=== PATIENT | female | born 1960 ===

== ENCOUNTER 2017-06-23 18:17 | Inpatient (IN) | payer MEDICAID ==
--- NOTE | 2017-06-23 18:39 | ED PDOC ---
HPI: Chest Pain Time Seen by Provider: 06/23/17 18:36 Chief Complaint (Nursing): Chest Pain Chief Complaint (Provider): CHEST PAIN History Per: Patient (56 Y/O FEMALE HERE FOR EVALUATION OF CHEST PAIN LEFT SIDED RADIATING TO LEFT ARM TODAY WHILE DOING MINOR HOUSEWORK. STATES SYMPTOMS LASTED 30 MINUTES. HAS H/O HTN/HLD AND 2 BALLOON STENT 5 YEARS AGO IN [place]. CURRENTLY FEELS THAT CHEST PAIN HAS DISSIPATED.) Past Medical History Reviewed: Historical Data, Nursing Documentation, Vital Signs Vital Signs: Last Vital Signs Temp 98.0 F 06/23/17 18:17 Pulse 88 06/23/17 19:31 Resp 20 06/23/17 19:31 BP 131/78 06/23/17 19:31 Pulse Ox 99 06/23/17 19:31 - Medical History PMH: CAD, Hypercholesterolemia Other PMH: PMD: DR RICHA PICKARD - Family History Family History: States: No Known Family Hx - Allergies Allergies/Adverse Reactions: Allergies Allergy/AdvReac Type Severity Reaction Status Date / Time Penicillins Allergy RASH Verified 06/23/17 18:24 Review of Systems ROS Statement: Except As Marked, All Systems Reviewed And Found Negative Cardiovascular: Positive for: Chest Pain Physical Exam - Reviewed Nursing Documentation Reviewed: Yes Vital Signs Reviewed: Yes - Physical Exam Appears: Positive for: Well, Non-toxic, No Acute Distress Head Exam: Positive for: ATRAUMATIC, NORMAL INSPECTION, NORMOCEPHALIC Skin: Positive for: Normal Color, Warm, DRY Eye Exam: Positive for: EOMI, Normal appearance, PERRL ENT: Positive for: Normal ENT Inspection Neck: Positive for: Normal, Painless ROM Cardiovascular/Chest: Positive for: Regular Rate, Rhythm Respiratory: Positive for: CNT, Normal Breath Sounds Gastrointestinal/Abdominal: Positive for: Normal Exam, Bowel Sounds, Soft Back: Positive for: Normal Inspection Extremity: Positive for: Normal ROM Neurologic/Psych: Positive for: Alert, Oriented - Laboratory Results Result Diagrams: 06/23/17 19:10 06/23/17 19:10 - ECG ECG Rhythm: Positive for: Sinus Rhythm (NSR 94BPM; NO ECTOPY NO ACUTE CHANGES) O2 Sat by Pulse Oximetry: 96 - Progress ED Course And Treament: initial ekg 18:10 nsr 94bpm; no ectopy ; no acute changes ASA 324 MG X 1 DOSE LOPRESSOR 25 MG X 1 DOSE Called to bedside for repeat chest pain 19:20. NItro slg x 1 given with relief of symptoms nitro 1 inch applied to chest wall Repeat EKG sandi at 19:35: nsr 82 bpm; no ectopy no acute changes CXR: cardiomegaly d/w Dr. Enamorado. Plavix 300mg x 1 dose and lovenox started in ED. Will order RUQ US to evaluate for biliary colic as well. Admitted to Dr. Ashok jin admission Disposition - Clinical Impression Clinical Impression: Chest pain - Patient ED Disposition Is Patient to be Admitted: Yes - Disposition Disposition: Transfer of Care Disposition Time: 20:32 Condition: FAIR Patient Signed Over To: Areli Ibarra Handoff Comments: pending ruq us - Pt Status Changed To: Hospital Disposition Of: Inpatient - Admit Certification Admit to Inpatient:: After my assessment, the patient will require hospitalization for at least two midnights. This is because of the severity of symptoms shown, intensity of services needed, and/or the medical risk in this patient being treated as an outpatient.
[2017-06-23 19:16] LABS: BASO # 0.1 K/uL (0.0-0.2); BASO % 0.3 % (0.0-2.0); LYMPH # 1.1 K/uL (1.0-4.3); LYMPH % 5.2 % (20.0-40.0); MEAN CELL VOLUME 80.8 fl (81.0-99.0); MEAN CORPUSCULAR HEMOGLOBIN 26.4 pg (27.0-31.0); MEAN CORPUSCULAR HGB CONC 32.7 g/dL (33.0-37.0); MEAN PLATELET VOLUME 8.3 fl (7.2-11.7); MONO % 4.4 % (0.0-10.0); NEUT # 19.6 K/uL (1.8-7.0); NEUT % 90.1 % (50.0-75.0); PLATELET COUNT 315 K/uL (130-400); RBC 4.53 Mil/uL (3.80-5.20); RED CELL DISTRIBUTION WIDTH 15.9 % (11.5-14.5); WHITE BLOOD COUNT 21.7 K/uL (4.8-10.8)
[2017-06-23 19:24] LABS: ALBUMIN 3.9 g/dL (3.5-5.0); ALT/SGPT 26 U/L (9-52); AST/SGOT 18 U/L (14-36); BLOOD UREA NITROGEN 21 mg/dl (7-17); CALCIUM 9.6 mg/dL (8.4-10.2); GFR AFRICAN-AMERICAN > 60; GFR NON-AFRICAN AMERICAN > 60
[2017-06-23] MEDS ORDERED: Sodium Chloride 0.9% 1,000 ML IV STA (19:47)
[2017-06-23 19:50] LABS: B-TYPE NATRIURETIC PEPTIDE 203 pg/ml (0-900)
[2017-06-23] MEDS ORDERED: Enoxaparin 100 mg Syringe SC STA (20:08)
[2017-06-23 20:26] LABS: VENOUS BLOOD GAS BASE EXCESS -0.8 mmol/L (0.0-2.0); VENOUS BLOOD GAS PCO2 41 mmHg (40-60); VENOUS BLOOD GAS PO2 57 mm/Hg (30-55); VENOUS BLOOD PH 7.38 (7.32-7.43)
[2017-06-23 20:48] LABS: BANDS 3 % (0-2); EOSINOPHIL 1 % (0-7); LYMPHOCYTE 8 % (20-50); MONOCYTE 4 % (0-10); NEUTROPHIL 84 % (42-75); TOTAL CELLS COUNTED 100
[2017-06-23 20:49] LABS: ANISOCYTOSIS SLIGHT; HYPOCHROMIC SLIGHT; MICROCYTOSIS SLIGHT; PLATELET ESTIMATE NORMAL (NORMAL); POLYCHROMIC SLIGHT
--- NOTE | 2017-06-23 21:02 | CP.PCM.CON ---
History of Present Illness - History of Present Illness History of Present Illness: CC/reason for ICU: NSTEMI, elevated Lactic, multiple comorbidities HPI: This is a 56 y/o female with HTN, HLD, and known CAD who was admitted to [facility] earlier with NSTEMI. She is noted to have an elevated WC and lactic acid level, and there is concern for concomittant infection, thus she will be observed closely in ICU. Patien presented initially with L sided CP radiating to arm while doing chores around house. Symptoms lasted for approximately 30 min and resolved. Currently no CP, SOB. No f/c/cough/n/v/d. No dysuria. No abd pain. ROS: 14 systems reviewed, negative other than HPI MHx: CAD, HLD, HTN SHx: Cath/stent 5 years ago possibly Allergies: PCN Medications: Per med rec Family Hx: Patient knows of no relevant family hx Social Hx: Lives with family, no tobacco (quit 3 years ago), no EtOH Surrogate: , info on chart Past Patient History - Infectious Disease Hx of Infectious Diseases: None - Past Social History Smoking Status: Never Smoked - CARDIAC Hx Hypercholesterolemia: Yes - PULMONARY Hx Asthma: Yes - PSYCHIATRIC Hx Substance Use: No - SURGICAL HISTORY Hx Surgeries: Yes Other/Comment: right knee surgery - ANESTHESIA Hx Anesthesia: Yes Meds Allergies/Adverse Reactions: Allergies Allergy/AdvReac Type Severity Reaction Status Date / Time Penicillins Allergy RASH Verified 06/23/17 18:24 - Medications Medications: Current Medications Aspirin (Aspirin) 325 mg PO DAILY [facility] Clopidogrel Bisulfate (Plavix) 75 mg PO DAILY [facility] Enoxaparin Sodium (Lovenox) 90 mg SC Q12 [facility] PRN Reason: Protocol Sodium Chloride (Sodium Chloride 0.9%) 1,000 mls @ 100 mls/hr IV .Q10H STA Stop: 06/24/17 05:46 Metoprolol Tartrate (Lopressor) 25 mg PO Q12 [facility] Nitroglycerin (Nitrostat Sl Tab) 0.4 mg SL Q5M PRN PRN Reason: Pain, severe (8-10) Last Admin: 06/23/17 19:33 Dose: 0.4 mg Nitroglycerin (Nitrostat Sl Tab) 0.4 mg SL Q5M PRN PRN Reason: chest pain Physical Exam - Constitutional Appears: No Acute Distress - Head Exam Head Exam: ATRAUMATIC, NORMOCEPHALIC - Eye Exam Eye Exam: EOMI, PERRL - ENT Exam ENT Exam: Mucous Membranes Dry - Neck Exam Neck exam: Positive for: Full Rom - Respiratory Exam Respiratory Exam: Clear to Auscultation Bilateral, NORMAL BREATHING PATTERN - Cardiovascular Exam Cardiovascular Exam: REGULAR RHYTHM, +S1, +S2 - GI/Abdominal Exam GI & Abdominal Exam: Normal Bowel Sounds, Soft - Extremities Exam Extremities exam: Positive for: normal inspection - Neurological Exam Neurological exam: Alert, CN II-XII Intact, Oriented x3 - Psychiatric Exam Psychiatric exam: Normal Affect, Normal Mood - Skin Skin Exam: Dry, Warm Results - Vital Signs Recent Vital Signs: Last Vital Signs Temp 98.0 F 06/23/17 18:17 Pulse 88 06/23/17 19:31 Resp 20 06/23/17 19:31 BP 131/78 06/23/17 19:31 Pulse Ox 96 06/23/17 20:33 - Labs Result Diagrams: 06/23/17 19:10 06/23/17 19:10 Labs: Laboratory Results - last 24 hr 06/23/17 06/23/17 06/23/17 19:10 19:10 20:10 WBC 21.7 H RBC 4.53 Hgb 12.0 Hct 36.6 MCV 80.8 L MCH 26.4 L MCHC 32.7 L RDW 15.9 H Plt Count 315 MPV 8.3 Neut % (Auto) 90.1 H Lymph % (Auto) 5.2 L [place] % (Auto) 4.4 Eos % (Auto) 0.0 Baso % (Auto) 0.3 Neut # (Auto) 19.6 H Lymph # (Auto) 1.1 [place] # (Auto) 1.0 H Eos # (Auto) 0.0 Baso # (Auto) 0.1 Neutrophils % (Manual) 84 H Band Neutrophils % 3 H Lymphocytes % (Manual) 8 L Monocytes % (Manual) 4 Eosinophils % (Manual) 1 Platelet Estimate Normal Polychromasia Slight Hypochromasia (manual) Slight Anisocytosis (manual) Slight Microcytosis (manual) Slight pO2 VBG pH VBG pCO2 VBG HCO3 VBG Total CO2 VBG O2 Sat (Calc) VBG Base Excess VBG Potassium Glucose Lactate FiO2 Crit Value Called To Crit Value Called By Crit Value Read Back Blood Gas Notified Time Sodium 140 Potassium 4.0 Chloride 104 Carbon Dioxide 21 L Anion Gap 19 BUN 21 H Creatinine 0.9 Est GFR ( Amer) > 60 Est GFR (Non-Af Amer) > 60 Random Glucose 279 H Calcium 9.6 Total Bilirubin 0.1 L AST 18 ALT 26 Alkaline Phosphatase 136 H Troponin I 0.1460 H* NT-Pro-B Natriuret Pep 203 Total Protein 7.8 Albumin 3.9 Globulin 3.8 Albumin/Globulin Ratio 1.0 Lipase 37 Venous Blood Potassium 06/23/17 20:18 WBC RBC Hgb Hct MCV MCH MCHC RDW Plt Count MPV Neut % (Auto) Lymph % (Auto) [place] % (Auto) Eos % (Auto) Baso % (Auto) Neut # (Auto) Lymph # (Auto) [place] # (Auto) Eos # (Auto) Baso # (Auto) Neutrophils % (Manual) Band Neutrophils % Lymphocytes % (Manual) Monocytes % (Manual) Eosinophils % (Manual) Platelet Estimate Polychromasia Hypochromasia (manual) Anisocytosis (manual) Microcytosis (manual) pO2 57 H VBG pH 7.38 VBG pCO2 41 VBG HCO3 24.1 VBG Total CO2 25.6 VBG O2 Sat (Calc) 94.3 H VBG Base Excess -0.8 L VBG Potassium 4.0 Glucose 277 H Lactate 3.0 H FiO2 21.0 Crit Value Called To caryn Su do Crit Value Called By Felisha barboza Crit Value Read Back Y Blood Gas Notified Time 2025 Sodium 139.0 Potassium Chloride 107.0 Carbon Dioxide Anion Gap BUN Creatinine Est GFR ( Amer) Est GFR (Non-Af Amer) Random Glucose Calcium Total Bilirubin AST ALT Alkaline Phosphatase Troponin I NT-Pro-B Natriuret Pep Total Protein Albumin Globulin Albumin/Globulin Ratio Lipase Venous Blood Potassium 4.0 - EKG Data EKG Interpreted by: Myself EKG shows normal: Sinus rhythm Rate: Normal - EKG Data EKG comments: SRIKANTH, no acute findings otherwise Assessment & Plan (1) Chest pain Assessment and Plan: 56 y/o female with HTN/HLD and NSTEMI, also with an elevated lactic acid level which may/may not be related to GA. -Admit ICU -Serial trops -Repeat lactic acid -Patient is having Abd U/S to r/o cholecystitis; if this is positive, start abx and surg consult -Echo in AM -Cardiology consult for AM -Cont ASA, Plavix, Lovenox -Cont Metoprolol, start lipitor high dose -On treatment dose lovenox, no dvt ppx necessary Status: Acute (2) Elevated lactic acid level Status: Acute
[2017-06-23 21:17] LABS: PARTIAL THROMBOPLASTIN TIME 25.3 Seconds (25.6-37.1); PROTHROMBIN TIME 11.5 Seconds (9.8-13.1)
--- NOTE | 2017-06-23 21:59 | US ---
EXAM: US Abdomen Limited, Right Upper Quadrant EXAM DATE/TIME: 06/23/2017 7:47 PM CLINICAL HISTORY: 56 years old, female; Pain; Abdominal pain; Epigastric; Additional info: Ruq abdominal pain TECHNIQUE: Real-time ultrasound of the right upper quadrant with image documentation. COMPARISON: There are no prior studies for comparison. FINDINGS: Liver: Hepatic texture is mildly heterogeneous. There is increased echogenicity to the liver.There is hepatopedal flow in the main portal vein. There is a 1.4 cm hepatic cyst. Gallbladder: Gallbladder is only partially distended with no stones, sludge or wall thickening. Common bile duct: Common bile duct measures 4 mm in diameter. Pancreas: Pancreas is almost completely obscured by bowel gas. Right kidney: Right kidney is unremarkable. Aorta: Visualized portions of the aorta and inferior vena cava are unremarkable. IMPRESSION: No gallstones or ductal dilatation; fatty liver Additional nonemergent findings as described above. Patient was not tender over the gallbladder
[2017-06-23 22:54] LABS: SQUAMOUS EPITHIAL 10 /hpf (0-5); URINE BACTERIA RARE (<OCC); URINE BILIRUBIN NEGATIVE (NEGATIVE); URINE BLOOD NEGATIVE (NEGATIVE); URINE CLARITY CLOUDY (Clear); URINE COLOR YELLOW (YELLOW); URINE GLUCOSE (UA) >=500 mg/dL (Normal); URINE LEUKOCYTE ESTERASE NEG Leu/uL (Negative); URINE PROTEIN 30 mg/dL (NEGATIVE); URINE UROBILINOGEN 0.2-1.0 mg/dL (0.2-1.0)
[2017-06-24 05:13] LABS: BASO % 0.3 % (0.0-2.0); EOS % 0.2 % (0.0-4.0); HEMOGLOBIN 11.8 g/dL (12.0-16.0); LYMPH # 2.8 K/uL (1.0-4.3); LYMPH % 16.2 % (20.0-40.0); MEAN CELL VOLUME 82.1 fl (81.0-99.0); MEAN CORPUSCULAR HGB CONC 31.6 g/dL (33.0-37.0); MEAN PLATELET VOLUME 8.5 fl (7.2-11.7); MONO # 0.9 K/uL (0.0-0.8); MONO % 5.5 % (0.0-10.0); NEUT # 13.3 K/uL (1.8-7.0); NEUT % 77.8 % (50.0-75.0); NRBC % 0.1 % (0.0-0.0); RBC 4.53 Mil/uL (3.80-5.20); WHITE BLOOD COUNT 17.1 K/uL (4.8-10.8)
[2017-06-24 05:19] LABS: BLOOD UREA NITROGEN 27 mg/dl (7-17); CALCIUM 9.1 mg/dL (8.4-10.2); GFR AFRICAN-AMERICAN > 60; GFR NON-AFRICAN AMERICAN > 60
--- NOTE | 2017-06-24 06:11 | CP.PCM.CON ---
History of Present Illness - History of Present Illness History of Present Illness: This 56- year-old female, a hypertensive and an ex-smoker came into the hospital complaining of left pectoral pain which occurred while doing chores around the house. The patient denies similar episodes in the past and has had no cardiac issues before. She denies being a diabetic. She denies this discomfort being accompanied by any nausea vomiting or perspiration with shortness of breath. The discomfort subsided spontaneously. Within an hour and a half a troponin level drawn in the emergency room was eliminated. This consultation was requested for the chest pain with accompanying troponin elevation. Patient denies any chills or fever or cough. She denies any dysuria. She denies any significant family history of vascular disease. During this examination the patient was comfortable was able to live virtually flat in bed and carry on a conversation. Physical examination shows a middle aged overweight female who is lying comfortably in bed flat and bleeds at 14-16 breaths per minute and denies any discomfort at this point. She is afebrile with a heart rate of 70 bpm and regular and a blood pressure of 140/70 mmHg. Her jugular venous pressure was not elevated. There was no edema over lower extremities. The pedal pulses are well felt. There were no carotid bruits. The apex was not palpable. The first and second heart sounds are normal. There was no murmur or gallop. There were no rales. Her extremities were warm and nailbeds were pink. There was no central or peripheral cyanosis. There was no clubbing. There was no lymphadenopathy. Her electrocardiogram in the emergency room showed sinus rhythm with a normal EKG pattern without any ST-T abnormalities. Electrocardiograms done immediately following a bout of chest pain also did not show any ST-T abnormalities. The chest pain in the emergency room apparently did not respond to sublingual nitroglycerin. Her lab data shows markedly limited leukocyte count exceeding 21,000 along with a lactic acid level of 3. Her BUN/creatinine and electrolytes were normal. Troponin was marginally elevated at 0.14 ng per mL. Impression: Elevated troponin level in a patient with atypical presentation of chest pain. The fact that the troponin levels have gone up within an hour and a half off chest pain which was atypical in nature to begin with accompanied by absence of ST-T abnormalities particularly on electro-cardiogram taken virtually immediately following a bout of chest pain in the emergency room costs doubt on the possibility that this represents coronary artery disease and an acute myocardial infarction. This accompanied by markedly elevated leukocyte count and lactate level strongly suggests possibility of infection which the patient is being treated for. Also markedly elevated blood sugar levels and presence of glucosuria indicates that the patient is most likely a diabetic without her being aware of it. At this point the patient is chest pain-free and hemodynamically stable. A second set of cardiac enzymes and electro-cardiogram will be done she will also have an echocardiogram to evaluate her left ventricular wall motion. In the meantime the patient has received antiplatelets drugs and Lovenox as a prophylaxis. Past Patient History - Infectious Disease Hx of Infectious Diseases: None - Past Medical History & Family History Past Medical History?: Yes - Past Social History Smoking Status: Former Smoker - CARDIAC Hx Cardiac Disorders: No Hx Angina: No Hx Atrial Fibrillation: No Hx Cardia Arrhythmia: No Hx Circulatory Problems: No Hx Congestive Heart Failure: No Hx Heart Attack: No Hx Heart Murmur: No Hx Heart Transplant: No Hx Hypercholesterolemia: Yes Hx Hypertension: Yes Hx Hypotension: No Hx Internal Defibrillator: No Hx Mitral Valve Prolapse: No Hx Pacemaker: No Hx Peripheral Edema: No Hx Peripheral Vascular Disease: No - PULMONARY Hx Asthma: Yes - HEMATOLOGICAL/ONCOLOGICAL Hx AIDS: No Hx Human Immunodeficiency Virus (HIV): No - MUSCULOSKELETAL/RHEUMATOLOGICAL Hx Falls: Yes - PSYCHIATRIC Hx Substance Use: No - SURGICAL HISTORY Hx Surgeries: Yes Hx Hysterectomy: No Hx Joint Replacement: No Other/Comment: right knee surgery - ANESTHESIA Hx Anesthesia: Yes Hx Anesthesia Reactions: No Hx Malignant Hyperthermia: No Has any member of the family had a problem w/ anesthesia?: No Meds Allergies/Adverse Reactions: Allergies Allergy/AdvReac Type Severity Reaction Status Date / Time Penicillins Allergy RASH Verified 06/23/17 18:24 - Medications Medications: Current Medications Aspirin (Aspirin) 325 mg PO DAILY [facility] Atorvastatin Calcium (Lipitor) 40 mg PO DAILY [facility] Clopidogrel Bisulfate (Plavix) 75 mg PO DAILY [facility] Enoxaparin Sodium (Lovenox) 90 mg SC Q12 [facility] PRN Reason: Protocol Metoprolol Tartrate (Lopressor) 25 mg PO Q12 [facility] Nitroglycerin (Nitrostat Sl Tab) 0.4 mg SL Q5M PRN PRN Reason: Pain, severe (8-10) Last Admin: 06/23/17 19:33 Dose: 0.4 mg Nitroglycerin (Nitrostat Sl Tab) 0.4 mg SL Q5M PRN PRN Reason: chest pain Results - Vital Signs Recent Vital Signs: Last Vital Signs Temp 986 F H 06/24/17 02:00 Pulse 74 06/24/17 02:00 Resp 16 06/24/17 02:00 BP 113/63 06/24/17 00:00 Pulse Ox 95 06/24/17 02:00 - Labs Result Diagrams: 06/24/17 04:20 06/24/17 04:20 Labs: Laboratory Results - last 24 hr 06/23/17 06/23/17 06/23/17 19:10 19:10 20:10 WBC 21.7 H RBC 4.53 Hgb 12.0 Hct 36.6 MCV 80.8 L MCH 26.4 L MCHC 32.7 L RDW 15.9 H Plt Count 315 MPV 8.3 Neut % (Auto) 90.1 H Lymph % (Auto) 5.2 L [place] % (Auto) 4.4 Eos % (Auto) 0.0 Baso % (Auto) 0.3 Neut # (Auto) 19.6 H Lymph # (Auto) 1.1 [place] # (Auto) 1.0 H Eos # (Auto) 0.0 Baso # (Auto) 0.1 Neutrophils % (Manual) 84 H Band Neutrophils % 3 H Lymphocytes % (Manual) 8 L Monocytes % (Manual) 4 Eosinophils % (Manual) 1 Platelet Estimate Normal Polychromasia Slight Hypochromasia (manual) Slight Anisocytosis (manual) Slight Microcytosis (manual) Slight PT INR APTT pO2 VBG pH VBG pCO2 VBG HCO3 VBG Total CO2 VBG O2 Sat (Calc) VBG Base Excess VBG Potassium Glucose Lactate FiO2 Crit Value Called To Crit Value Called By Crit Value Read Back Blood Gas Notified Time Sodium 140 Potassium 4.0 Chloride 104 Carbon Dioxide 21 L Anion Gap 19 BUN 21 H Creatinine 0.9 Est GFR ( Amer) > 60 Est GFR (Non-Af Amer) > 60 Random Glucose 279 H Lactic Acid Calcium 9.6 Total Bilirubin 0.1 L AST 18 ALT 26 Alkaline Phosphatase 136 H Troponin I 0.1460 H* NT-Pro-B Natriuret Pep 203 Total Protein 7.8 Albumin 3.9 Globulin 3.8 Albumin/Globulin Ratio 1.0 Lipase 37 Venous Blood Potassium Urine Color Urine Clarity Urine pH Ur Specific [place] Urine Protein Urine Glucose (UA) Urine Ketones Urine Blood Urine Nitrate Urine Bilirubin Urine Urobilinogen Ur Leukocyte Esterase Urine RBC (Auto) Urine Microscopic WBC Ur Squamous Epith Cells Urine Bacteria 06/23/17 06/23/17 06/23/17 20:18 21:02 22:00 WBC RBC Hgb Hct MCV MCH MCHC RDW Plt Count MPV Neut % (Auto) Lymph % (Auto) [place] % (Auto) Eos % (Auto) Baso % (Auto) Neut # (Auto) Lymph # (Auto) [place] # (Auto) Eos # (Auto) Baso # (Auto) Neutrophils % (Manual) Band Neutrophils % Lymphocytes % (Manual) Monocytes % (Manual) Eosinophils % (Manual) Platelet Estimate Polychromasia Hypochromasia (manual) Anisocytosis (manual) Microcytosis (manual) PT 11.5 INR 1.0 APTT 25.3 L pO2 57 H VBG pH 7.38 VBG pCO2 41 VBG HCO3 24.1 VBG Total CO2 25.6 VBG O2 Sat (Calc) 94.3 H VBG Base Excess -0.8 L VBG Potassium 4.0 Glucose 277 H Lactate 3.0 H FiO2 21.0 Crit Value Called To caryn Su do Crit Value Called By Felisha barboza Crit Value Read Back Y Blood Gas Notified Time 2025 Sodium 139.0 Potassium Chloride 107.0 Carbon Dioxide Anion Gap BUN Creatinine Est GFR ( Amer) Est GFR (Non-Af Amer) Random Glucose Lactic Acid Calcium Total Bilirubin AST ALT Alkaline Phosphatase Troponin I NT-Pro-B Natriuret Pep Total Protein Albumin Globulin Albumin/Globulin Ratio Lipase Venous Blood Potassium 4.0 Urine Color Yellow Urine Clarity Cloudy Urine pH 6.0 Ur Specific [place] 1.031 H Urine Protein 30 Urine Glucose (UA) >=500 Urine Ketones Negative Urine Blood Negative Urine Nitrate Negative Urine Bilirubin Negative Urine Urobilinogen 0.2-1.0 Ur Leukocyte Esterase Neg Urine RBC (Auto) 3 Urine Microscopic WBC 2 Ur Squamous Epith Cells 10 H Urine Bacteria Rare 06/24/17 06/24/17 06/24/17 04:20 04:20 04:20 WBC 17.1 H RBC 4.53 Hgb 11.8 L Hct 37.2 MCV 82.1 MCH 26.0 L MCHC 31.6 L RDW 16.0 H Plt Count 288 MPV 8.5 Neut % (Auto) 77.8 H Lymph % (Auto) 16.2 L [place] % (Auto) 5.5 Eos % (Auto) 0.2 Baso % (Auto) 0.3 Neut # (Auto) 13.3 H Lymph # (Auto) 2.8 [place] # (Auto) 0.9 H Eos # (Auto) 0.0 Baso # (Auto) 0.0 Neutrophils % (Manual) Band Neutrophils % Lymphocytes % (Manual) Monocytes % (Manual) Eosinophils % (Manual) Platelet Estimate Polychromasia Hypochromasia (manual) Anisocytosis (manual) Microcytosis (manual) PT INR APTT pO2 VBG pH VBG pCO2 VBG HCO3 VBG Total CO2 VBG O2 Sat (Calc) VBG Base Excess VBG Potassium Glucose Lactate FiO2 Crit Value Called To Crit Value Called By Crit Value Read Back Blood Gas Notified Time Sodium 145 Potassium 3.8 Chloride 109 H Carbon Dioxide 24 Anion Gap 16 BUN 27 H Creatinine 0.9 Est GFR ( Amer) > 60 Est GFR (Non-Af Amer) > 60 Random Glucose 179 H Lactic Acid 1.4 Calcium 9.1 Total Bilirubin AST ALT Alkaline Phosphatase Troponin I NT-Pro-B Natriuret Pep Total Protein Albumin Globulin Albumin/Globulin Ratio Lipase Venous Blood Potassium Urine Color Urine Clarity Urine pH Ur Specific [place] Urine Protein Urine Glucose (UA) Urine Ketones Urine Blood Urine Nitrate Urine Bilirubin Urine Urobilinogen Ur Leukocyte Esterase Urine RBC (Auto) Urine Microscopic WBC Ur Squamous Epith Cells Urine Bacteria
[2017-06-24] MEDS: Enoxaparin 100 mg Syringe SC SCH ×2 (08:38→20:48)
--- NOTE | 2017-06-24 10:41 | RAD ---
PROCEDURE: CHEST RADIOGRAPH, 1 VIEW HISTORY: CP COMPARISON: None available. FINDINGS: LUNGS: No infiltrate identified bilaterally. Hemidiaphragm elevation is identified. PLEURA: No pneumothorax or pleural fluid seen. CARDIOVASCULAR: Cardiomegaly is apparent. No pulmonary vascular derangement appreciated. OSSEOUS STRUCTURES: No significant abnormalities. VISUALIZED UPPER ABDOMEN: Normal. OTHER FINDINGS: None. IMPRESSION: Cardiomegaly without pulmonary vascular derangement. No infiltrate, pleural effusion or pneumothorax identified. Elevated right hemidiaphragm noted.
--- NOTE | 2017-06-24 11:02 | CARD ---
APPROVED REPORT EKG Measurement Heart [id number] <Conclusion> Normal sinus rhythm Possible Left atrial enlargement Left ventricular hypertrophy Abnormal ECG
--- NOTE | 2017-06-24 11:02 | CARD ---
APPROVED REPORT EKG Measurement Heart [id number] [id number] <Conclusion> Normal sinus rhythm Possible Left atrial enlargement Borderline ECG
--- NOTE | 2017-06-24 15:30 | CARD ---
APPROVED REPORT EXAM: Two-dimensional and M-mode echocardiogram with Doppler and color Doppler. Other Information Quality : GoodRhythm : NSR INDICATION Non STEMI 2D DIMENSIONS IVSd1.19 (0.7-1.1cm)LVDd4.61 (3.9-5.9cm) LVOT Diameter2.02 (1.8-2.4cm)PWd1.22 (0.7-1.1cm) IVSs1.36 (0.8-1.2cm)LVDs3.01 (2.5-4.0cm) FS (%) 34.8 %PWs1.28 (0.8-1.2cm) M-Mode DIMENSIONS Left Atrium (MM)3.97 (2.5-4.0cm)IVSd1.24 (0.7-1.1cm) Aortic Root3.18 (2.2-3.7cm)LVDd4.74 (4.0-5.6cm) Aortic Cusp Exc.2.03 (1.5-2.0cm)PWd1.21 (0.7-1.1cm) IVSs1.56 cmFS (%) 34 % LVDs3.15 (2.0-3.8cm)PWs1.62 cm Mitral Valve MV E Etwrpheb350.1cm/sMV DECEL [id number] A Vabfwtgh63.1cm/s MV CLX78luD/A ratio1.1MVA (PHT)3.49cm2 TDI Lateral E' Peak V9.21cm/sMedial E' Peak V8.31cm/sE/Lateral E'10.9 E/Medial E'12.0 Pulmonary Valve PV Peak Gkkfrphc76.0cm/s Tricuspid Valve TR Peak Qocuotdi531bt/sRAP [id number] Peak Gr.24mmHg [id number] LEFT VENTRICLE The left ventricle is normal in size. There is normal left ventricular wall thickness. The left ventricular function is normal. The left ventricular ejection fraction is - 65-70%. There is normal LV segmental wall motion. The left ventricular diastolic function is normal. No left ventricle thrombus noted on this study. There is no ventricular septal defect visualized. There is no left ventricular aneurysm. There is no mass noted in the left ventricle. RIGHT VENTRICLE The right ventricle is normal size. There is normal right ventricular wall thickness. The right ventricular systolic function is normal. ATRIA The left atrium size is normal. There is no thrombus suspected in the left atrium. The right atrium size is normal. The interatrial septum is intact with no evidence for an atrial septal defect. AORTIC VALVE The aortic valve is normal in structure. There is mild aortic regurgitation. There is no aortic valvular stenosis. MITRAL VALVE The mitral valve is normal in structure. There is no evidence of mitral valve prolapse. There is no mitral valve stenosis. Mitral regurgitation is trace. TRICUSPID VALVE The tricuspid valve is normal in structure. There is mild tricuspid regurgitation. There is no tricuspid valve prolapse or vegetation. There is no tricuspid valve stenosis. PULMONIC VALVE The pulmonary valve is normal in structure. There is no pulmonic valvular regurgitation. GREAT VESSELS The aortic root is normal in size. The IVC is normal in size and collapses >50% with inspiration. PERICARDIAL EFFUSION The pericardium appears normal. There is no pleural effusion. <Conclusion> The left ventricle is normal in size and wall thickness. The left ventricular function is normal. The left ventricular ejection fraction is - 65-70%. The left atrium, right ventricle and right atrium are normal in size. The mitral, aortic and tricuspid valves are normal. There is mild regurgitation of the aortic and tricuspid valves.
--- NOTE | 2017-06-24 15:30 | CP.CCUPN ---
CCU Subjective - Physician Review Subjective (Free Text): Uneventful day so far, has been seen by cardiology and cleared of any ischemic heart disease for now, echo has been done and results are pending. Other Vitals and I/Os reviewed. No Fever spikes overnight. ROS: No other pertinent negs or positives on 10+ system review. PMSFH: All other historical Nursing and physician documentation reviewed to date; no new pertinent info noted relevant to current medical problems. EXAM- HEENT: no icterus, no gaze preference, pupils equal and reactive, no icterus NECK: No JVD, supple, carotids equal upstroke bilat/no bruits CHEST: Clear breath sounds bilaterally, no wheezes audible HEART: Regular, distant, S1S2, no rubs. ABD: soft, no distention, no tympany, no palp tenderness, BS hypoactive EXT: No peripheral/ digital cyanosis, no calf tenderness or palpable cords, distal pulses intact and symmetrical. NEURO: No gross focal motor deficits. SKIN: no rashes, warm and dry. LABS: Repeat troponin level is normal, repeat WBC is down to 17.1 and repeat lactate has decreased from 3.0-1.4 this morning. MAJOR PROBLEMS: 1. Acute coronary syndrome with acute VA ruled out far. 2. Acute cholecystitis has been ruled out 3. Azotemia secondary to dehydration 4. Lactic acidosis: No septic nor cardiogenic focus 5. Hypoglycemia with mild metabolic acidosis on presentation, there may have been a component of mild DKA with lactic acid elevation, which responded to initial fluid input. PLAN: 1. Serial lactates show normalization. 2. Cardiology consultation noted and reviewed, results of transthoracic echocardiogram are pending. 3. Check a hemoglobin A1c level. 4. Ongoing IV fluid hydration. 5. If echo results are normal, patient is medically stable for downgrade to a stepdown or regular MedSurg bed. CCU Objective - Vital Signs / Intake & Output Vital Signs (Last 4 hours): Vital Signs Temp Pulse Resp BP Pulse Ox 06/24/17 14:00 72 22 106/64 97 06/24/17 12:00 98.2 F 66 19 101/58 L 97 Intake and Output (Last 8hrs): Intake & Output 06/24/17 06/24/17 06/24/17 06:59 14:59 22:59 Intake Total 200 600 Output Total 0 Balance 200 600 Weight 225 lb Intake: Oral 200 600 Output: Stool 0 Other: # Voids Urine, Voided 1 - Medications Active Medications: Active Medications Generic Name Dose Route Start Last Admin Trade Name Jose Luis PRN Reason Stop Dose Admin Aspirin 325 mg 06/24/17 09:00 06/24/17 08:40 Aspirin PO 325 mg DAILY FILI Administration Atorvastatin Calcium 40 mg 06/23/17 21:30 06/24/17 08:37 Lipitor PO 40 mg DAILY FILI Administration Clopidogrel Bisulfate 75 mg 06/24/17 09:00 06/24/17 08:39 Plavix PO 75 mg DAILY FILI Administration Enoxaparin Sodium 90 mg 06/24/17 09:00 06/24/17 08:38 Lovenox SC 90 mg Q12 FILI Administration Protocol Metoprolol Tartrate 25 mg 06/24/17 09:00 06/24/17 08:38 Lopressor PO 25 mg Q12 FILI Administration Nitroglycerin 0.4 mg 06/23/17 19:22 06/23/17 19:33 Nitrostat Sl Tab SL 0.4 mg Q5M PRN Administration Pain, severe (8-10) Nitroglycerin 0.4 mg 06/23/17 20:55 Nitrostat Sl Tab SL Q5M PRN chest pain - Patient Studies Lab Studies: Lab Studies 06/24/17 06/24/17 06/24/17 Range/Units 08:04 04:20 04:20 WBC (4.8-10.8) K/uL RBC (3.80-5.20) Mil/uL Hgb (12.0-16.0) g/dL Hct (34.0-47.0) % MCV (81.0-99.0) fl MCH (27.0-31.0) pg MCHC (33.0-37.0) g/dL RDW (11.5-14.5) % Plt Count (130-400) K/uL MPV (7.2-11.7) fl Neut % (Auto) (50.0-75.0) % Lymph % (Auto) (20.0-40.0) % [place] % (Auto) (0.0-10.0) % Eos % (Auto) (0.0-4.0) % Baso % (Auto) (0.0-2.0) % Neut # (Auto) (1.8-7.0) K/uL Lymph # (Auto) (1.0-4.3) K/uL [place] # (Auto) (0.0-0.8) K/uL Eos # (Auto) (0.0-0.7) K/uL Baso # (Auto) (0.0-0.2) K/uL Neutrophils % (Manual) (42-75) % Band Neutrophils % (0-2) % Lymphocytes % (Manual) (20-50) % Monocytes % (Manual) (0-10) % Eosinophils % (Manual) (0-7) % Platelet Estimate (NORMAL) Polychromasia Hypochromasia (manual) Anisocytosis (manual) Microcytosis (manual) PT (9.8-13.1) Seconds INR (0.9-1.2) APTT (25.6-37.1) Seconds pO2 (30-55) mm/Hg VBG pH (7.32-7.43) VBG pCO2 (40-60) mmHg VBG HCO3 mmol/L VBG Total CO2 (22-28) mmol/L VBG O2 Sat (Calc) (40-65) % VBG Base Excess (0.0-2.0) mmol/L VBG Potassium (3.6-5.2) mmol/L Glucose (65-105) mg/dL Lactate (0.7-2.1) mmol/L FiO2 % Crit Value Called To Crit Value Called By Crit Value Read Back Blood Gas Notified Time Sodium 145 (132-148) mmol/l Potassium 3.8 (3.6-5.0) MMOL/L Chloride 109 H (98-107) mmol/L Carbon Dioxide 24 (22-30) mmol/L Anion Gap 16 (10-20) BUN 27 H (7-17) mg/dl Creatinine 0.9 (0.7-1.2) mg/dl Est GFR ( Amer) > 60 Est GFR (Non-Af Amer) > 60 Random Glucose 179 H (65-105) mg/dL Lactic Acid 1.4 (0.7-2.1) MMOL/L Calcium 9.1 (8.4-10.2) mg/dL Total Bilirubin (0.2-1.3) mg/dl AST (14-36) U/L ALT (9-52) U/L Alkaline Phosphatase (38-126) U/L Troponin I 0.0620 (0.00-0.120) ng/mL NT-Pro-B Natriuret Pep (0-900) pg/ml Total Protein (6.3-8.2) G/DL Albumin (3.5-5.0) g/dL Globulin (2.2-3.9) gm/dL Albumin/Globulin Ratio (1.0-2.1) Lipase (23-300) U/L Venous Blood Potassium (3.6-5.2) mmol/L Urine Color (YELLOW) Urine Clarity (Clear) Urine pH (5.0-8.0) Ur Specific [place] (1.003-1.030) Urine Protein (NEGATIVE) mg/dL Urine Glucose (UA) (Normal) mg/dL Urine Ketones (NEGATIVE) mg/dL Urine Blood (NEGATIVE) Urine Nitrate (NEGATIVE) Urine Bilirubin (NEGATIVE) Urine Urobilinogen (0.2-1.0) mg/dL Ur Leukocyte Esterase (Negative) Saima/uL Urine RBC (Auto) (0-3) /hpf Urine Microscopic WBC (0-5) /hpf Ur Squamous Epith Cells (0-5) /hpf Urine Bacteria (<OCC) 06/24/17 06/23/17 06/23/17 Range/Units 04:20 22:00 21:02 WBC 17.1 H (4.8-10.8) K/uL RBC 4.53 (3.80-5.20) Mil/uL Hgb 11.8 L (12.0-16.0) g/dL Hct 37.2 (34.0-47.0) % MCV 82.1 (81.0-99.0) fl MCH 26.0 L (27.0-31.0) pg MCHC 31.6 L (33.0-37.0) g/dL RDW 16.0 H (11.5-14.5) % Plt Count 288 (130-400) K/uL MPV 8.5 (7.2-11.7) fl Neut % (Auto) 77.8 H (50.0-75.0) % Lymph % (Auto) 16.2 L (20.0-40.0) % [place] % (Auto) 5.5 (0.0-10.0) % Eos % (Auto) 0.2 (0.0-4.0) % Baso % (Auto) 0.3 (0.0-2.0) % Neut # (Auto) 13.3 H (1.8-7.0) K/uL Lymph # (Auto) 2.8 (1.0-4.3) K/uL [place] # (Auto) 0.9 H (0.0-0.8) K/uL Eos # (Auto) 0.0 (0.0-0.7) K/uL Baso # (Auto) 0.0 (0.0-0.2) K/uL Neutrophils % (Manual) (42-75) % Band Neutrophils % (0-2) % Lymphocytes % (Manual) (20-50) % Monocytes % (Manual) (0-10) % Eosinophils % (Manual) (0-7) % Platelet Estimate (NORMAL) Polychromasia Hypochromasia (manual) Anisocytosis (manual) Microcytosis (manual) PT 11.5 (9.8-13.1) Seconds INR 1.0 (0.9-1.2) APTT 25.3 L (25.6-37.1) Seconds pO2 (30-55) mm/Hg VBG pH (7.32-7.43) VBG pCO2 (40-60) mmHg VBG HCO3 mmol/L VBG Total CO2 (22-28) mmol/L VBG O2 Sat (Calc) (40-65) % VBG Base Excess (0.0-2.0) mmol/L VBG Potassium (3.6-5.2) mmol/L Glucose (65-105) mg/dL Lactate (0.7-2.1) mmol/L FiO2 % Crit Value Called To Crit Value Called By Crit Value Read Back Blood Gas Notified Time Sodium (132-148) mmol/l Potassium (3.6-5.0) MMOL/L Chloride (98-107) mmol/L Carbon Dioxide (22-30) mmol/L Anion Gap (10-20) BUN (7-17) mg/dl Creatinine (0.7-1.2) mg/dl Est GFR ( Amer) Est GFR (Non-Af Amer) Random Glucose (65-105) mg/dL Lactic Acid (0.7-2.1) MMOL/L Calcium (8.4-10.2) mg/dL Total Bilirubin (0.2-1.3) mg/dl AST (14-36) U/L ALT (9-52) U/L Alkaline Phosphatase (38-126) U/L Troponin I (0.00-0.120) ng/mL NT-Pro-B Natriuret Pep (0-900) pg/ml Total Protein (6.3-8.2) G/DL Albumin (3.5-5.0) g/dL Globulin (2.2-3.9) gm/dL Albumin/Globulin Ratio (1.0-2.1) Lipase (23-300) U/L Venous Blood Potassium (3.6-5.2) mmol/L Urine Color Yellow (YELLOW) Urine Clarity Cloudy (Clear) Urine pH 6.0 (5.0-8.0) Ur Specific [place] 1.031 H (1.003-1.030) Urine Protein 30 (NEGATIVE) mg/dL Urine Glucose (UA) >=500 (Normal) mg/dL Urine Ketones Negative (NEGATIVE) mg/dL Urine Blood Negative (NEGATIVE) Urine Nitrate Negative (NEGATIVE) Urine Bilirubin Negative (NEGATIVE) Urine Urobilinogen 0.2-1.0 (0.2-1.0) mg/dL Ur Leukocyte Esterase Neg (Negative) Saima/uL Urine RBC (Auto) 3 (0-3) /hpf Urine Microscopic WBC 2 (0-5) /hpf Ur Squamous Epith Cells 10 H (0-5) /hpf Urine Bacteria Rare (<OCC) 06/23/17 06/23/17 06/23/17 Range/Units 20:18 20:10 19:10 WBC 21.7 H (4.8-10.8) K/uL RBC 4.53 (3.80-5.20) Mil/uL Hgb 12.0 (12.0-16.0) g/dL Hct 36.6 (34.0-47.0) % MCV 80.8 L (81.0-99.0) fl MCH 26.4 L (27.0-31.0) pg MCHC 32.7 L (33.0-37.0) g/dL RDW 15.9 H (11.5-14.5) % Plt Count 315 (130-400) K/uL MPV 8.3 (7.2-11.7) fl Neut % (Auto) 90.1 H (50.0-75.0) % Lymph % (Auto) 5.2 L (20.0-40.0) % [place] % (Auto) 4.4 (0.0-10.0) % Eos % (Auto) 0.0 (0.0-4.0) % Baso % (Auto) 0.3 (0.0-2.0) % Neut # (Auto) 19.6 H (1.8-7.0) K/uL Lymph # (Auto) 1.1 (1.0-4.3) K/uL [place] # (Auto) 1.0 H (0.0-0.8) K/uL Eos # (Auto) 0.0 (0.0-0.7) K/uL Baso # (Auto) 0.1 (0.0-0.2) K/uL Neutrophils % (Manual) 84 H (42-75) % Band Neutrophils % 3 H (0-2) % Lymphocytes % (Manual) 8 L (20-50) % Monocytes % (Manual) 4 (0-10) % Eosinophils % (Manual) 1 (0-7) % Platelet Estimate Normal (NORMAL) Polychromasia Slight Hypochromasia (manual) Slight Anisocytosis (manual) Slight Microcytosis (manual) Slight PT (9.8-13.1) Seconds INR (0.9-1.2) APTT (25.6-37.1) Seconds pO2 57 H (30-55) mm/Hg VBG pH 7.38 (7.32-7.43) VBG pCO2 41 (40-60) mmHg VBG HCO3 24.1 mmol/L VBG Total CO2 25.6 (22-28) mmol/L VBG O2 Sat (Calc) 94.3 H (40-65) % VBG Base Excess -0.8 L (0.0-2.0) mmol/L VBG Potassium 4.0 (3.6-5.2) mmol/L Glucose 277 H (65-105) mg/dL Lactate 3.0 H (0.7-2.1) mmol/L FiO2 21.0 % Crit Value Called To caryn Su do Crit Value Called By Felisha barboza Crit Value Read Back Y Blood Gas Notified Time 2025 Sodium 139.0 (132-148) mmol/l Potassium (3.6-5.0) MMOL/L Chloride 107.0 (98-107) mmol/L Carbon Dioxide (22-30) mmol/L Anion Gap (10-20) BUN (7-17) mg/dl Creatinine (0.7-1.2) mg/dl Est GFR ( Amer) Est GFR (Non-Af Amer) Random Glucose (65-105) mg/dL Lactic Acid (0.7-2.1) MMOL/L Calcium (8.4-10.2) mg/dL Total Bilirubin (0.2-1.3) mg/dl AST (14-36) U/L ALT (9-52) U/L Alkaline Phosphatase (38-126) U/L Troponin I (0.00-0.120) ng/mL NT-Pro-B Natriuret Pep (0-900) pg/ml Total Protein (6.3-8.2) G/DL Albumin (3.5-5.0) g/dL Globulin (2.2-3.9) gm/dL Albumin/Globulin Ratio (1.0-2.1) Lipase 37 (23-300) U/L Venous Blood Potassium 4.0 (3.6-5.2) mmol/L Urine Color (YELLOW) Urine Clarity (Clear) Urine pH (5.0-8.0) Ur Specific [place] (1.003-1.030) Urine Protein (NEGATIVE) mg/dL Urine Glucose (UA) (Normal) mg/dL Urine Ketones (NEGATIVE) mg/dL Urine Blood (NEGATIVE) Urine Nitrate (NEGATIVE) Urine Bilirubin (NEGATIVE) Urine Urobilinogen (0.2-1.0) mg/dL Ur Leukocyte Esterase (Negative) Saima/uL Urine RBC (Auto) (0-3) /hpf Urine Microscopic WBC (0-5) /hpf Ur Squamous Epith Cells (0-5) /hpf Urine Bacteria (<OCC) 06/23/18 Range/Units 19:10 WBC (4.8-10.8) K/uL RBC (3.80-5.20) Mil/uL Hgb (12.0-16.0) g/dL Hct (34.0-47.0) % MCV (81.0-99.0) fl MCH (27.0-31.0) pg MCHC (33.0-37.0) g/dL RDW (11.5-14.5) % Plt Count (130-400) K/uL MPV (7.2-11.7) fl Neut % (Auto) (50.0-75.0) % Lymph % (Auto) (20.0-40.0) % [place] % (Auto) (0.0-10.0) % Eos % (Auto) (0.0-4.0) % Baso % (Auto) (0.0-2.0) % Neut # (Auto) (1.8-7.0) K/uL Lymph # (Auto) (1.0-4.3) K/uL [place] # (Auto) (0.0-0.8) K/uL Eos # (Auto) (0.0-0.7) K/uL Baso # (Auto) (0.0-0.2) K/uL Neutrophils % (Manual) (42-75) % Band Neutrophils % (0-2) % Lymphocytes % (Manual) (20-50) % Monocytes % (Manual) (0-10) % Eosinophils % (Manual) (0-7) % Platelet Estimate (NORMAL) Polychromasia Hypochromasia (manual) Anisocytosis (manual) Microcytosis (manual) PT (9.8-13.1) Seconds INR (0.9-1.2) APTT (25.6-37.1) Seconds pO2 (30-55) mm/Hg VBG pH (7.32-7.43) VBG pCO2 (40-60) mmHg VBG HCO3 mmol/L VBG Total CO2 (22-28) mmol/L VBG O2 Sat (Calc) (40-65) % VBG Base Excess (0.0-2.0) mmol/L VBG Potassium (3.6-5.2) mmol/L Glucose (65-105) mg/dL Lactate (0.7-2.1) mmol/L FiO2 % Crit Value Called To Crit Value Called By Crit Value Read Back Blood Gas Notified Time Sodium 140 (132-148) mmol/l Potassium 4.0 (3.6-5.0) MMOL/L Chloride 104 (98-107) mmol/L Carbon Dioxide 21 L (22-30) mmol/L Anion Gap 19 (10-20) BUN 21 H (7-17) mg/dl Creatinine 0.9 (0.7-1.2) mg/dl Est GFR ( Amer) > 60 Est GFR (Non-Af Amer) > 60 Random Glucose 279 H (65-105) mg/dL Lactic Acid (0.7-2.1) MMOL/L Calcium 9.6 (8.4-10.2) mg/dL Total Bilirubin 0.1 L (0.2-1.3) mg/dl AST 18 (14-36) U/L ALT 26 (9-52) U/L Alkaline Phosphatase 136 H (38-126) U/L Troponin I 0.1460 H* (0.00-0.120) ng/mL NT-Pro-B Natriuret Pep 203 (0-900) pg/ml Total Protein 7.8 (6.3-8.2) G/DL Albumin 3.9 (3.5-5.0) g/dL Globulin 3.8 (2.2-3.9) gm/dL Albumin/Globulin Ratio 1.0 (1.0-2.1) Lipase (23-300) U/L Venous Blood Potassium (3.6-5.2) mmol/L Urine Color (YELLOW) Urine Clarity (Clear) Urine pH (5.0-8.0) Ur Specific [place] (1.003-1.030) Urine Protein (NEGATIVE) mg/dL Urine Glucose (UA) (Normal) mg/dL Urine Ketones (NEGATIVE) mg/dL Urine Blood (NEGATIVE) Urine Nitrate (NEGATIVE) Urine Bilirubin (NEGATIVE) Urine Urobilinogen (0.2-1.0) mg/dL Ur Leukocyte Esterase (Negative) Saima/uL Urine RBC (Auto) (0-3) /hpf Urine Microscopic WBC (0-5) /hpf Ur Squamous Epith Cells (0-5) /hpf Urine Bacteria (<OCC) Laboratory Results - last 24 hr 06/23/17 06/23/17 06/23/17 19:10 19:10 20:10 WBC 21.7 H RBC 4.53 Hgb 12.0 Hct 36.6 MCV 80.8 L MCH 26.4 L MCHC 32.7 L RDW 15.9 H Plt Count 315 MPV 8.3 Neut % (Auto) 90.1 H Lymph % (Auto) 5.2 L [place] % (Auto) 4.4 Eos % (Auto) 0.0 Baso % (Auto) 0.3 Neut # (Auto) 19.6 H Lymph # (Auto) 1.1 [place] # (Auto) 1.0 H Eos # (Auto) 0.0 Baso # (Auto) 0.1 Neutrophils % (Manual) 84 H Band Neutrophils % 3 H Lymphocytes % (Manual) 8 L Monocytes % (Manual) 4 Eosinophils % (Manual) 1 Platelet Estimate Normal Polychromasia Slight Hypochromasia (manual) Slight Anisocytosis (manual) Slight Microcytosis (manual) Slight PT INR APTT pO2 VBG pH VBG pCO2 VBG HCO3 VBG Total CO2 VBG O2 Sat (Calc) VBG Base Excess VBG Potassium Glucose Lactate FiO2 Crit Value Called To Crit Value Called By Crit Value Read Back Blood Gas Notified Time Sodium 140 Potassium 4.0 Chloride 104 Carbon Dioxide 21 L Anion Gap 19 BUN 21 H Creatinine 0.9 Est GFR ( Amer) > 60 Est GFR (Non-Af Amer) > 60 Random Glucose 279 H Lactic Acid Calcium 9.6 Total Bilirubin 0.1 L AST 18 ALT 26 Alkaline Phosphatase 136 H Troponin I 0.1460 H* NT-Pro-B Natriuret Pep 203 Total Protein 7.8 Albumin 3.9 Globulin 3.8 Albumin/Globulin Ratio 1.0 Lipase 37 Venous Blood Potassium Urine Color Urine Clarity Urine pH Ur Specific [place] Urine Protein Urine Glucose (UA) Urine Ketones Urine Blood Urine Nitrate Urine Bilirubin Urine Urobilinogen Ur Leukocyte Esterase Urine RBC (Auto) Urine Microscopic WBC Ur Squamous Epith Cells Urine Bacteria 06/23/17 06/23/17 06/23/17 20:18 21:02 22:00 WBC RBC Hgb Hct MCV MCH MCHC RDW Plt Count MPV Neut % (Auto) Lymph % (Auto) [place] % (Auto) Eos % (Auto) Baso % (Auto) Neut # (Auto) Lymph # (Auto) [place] # (Auto) Eos # (Auto) Baso # (Auto) Neutrophils % (Manual) Band Neutrophils % Lymphocytes % (Manual) Monocytes % (Manual) Eosinophils % (Manual) Platelet Estimate Polychromasia Hypochromasia (manual) Anisocytosis (manual) Microcytosis (manual) PT 11.5 INR 1.0 APTT 25.3 L pO2 57 H VBG pH 7.38 VBG pCO2 41 VBG HCO3 24.1 VBG Total CO2 25.6 VBG O2 Sat (Calc) 94.3 H VBG Base Excess -0.8 L VBG Potassium 4.0 Glucose 277 H Lactate 3.0 H FiO2 21.0 Crit Value Called To caryn Su do Crit Value Called By Felisha barboza Crit Value Read Back Y Blood Gas Notified Time 2025 Sodium 139.0 Potassium Chloride 107.0 Carbon Dioxide Anion Gap BUN Creatinine Est GFR ( Amer) Est GFR (Non-Af Amer) Random Glucose Lactic Acid Calcium Total Bilirubin AST ALT Alkaline Phosphatase Troponin I NT-Pro-B Natriuret Pep Total Protein Albumin Globulin Albumin/Globulin Ratio Lipase Venous Blood Potassium 4.0 Urine Color Yellow Urine Clarity Cloudy Urine pH 6.0 Ur Specific [place] 1.031 H Urine Protein 30 Urine Glucose (UA) >=500 Urine Ketones Negative Urine Blood Negative Urine Nitrate Negative Urine Bilirubin Negative Urine Urobilinogen 0.2-1.0 Ur Leukocyte Esterase Neg Urine RBC (Auto) 3 Urine Microscopic WBC 2 Ur Squamous Epith Cells 10 H Urine Bacteria Rare 06/24/17 06/24/17 06/24/17 04:20 04:20 04:20 WBC 17.1 H RBC 4.53 Hgb 11.8 L Hct 37.2 MCV 82.1 MCH 26.0 L MCHC 31.6 L RDW 16.0 H Plt Count 288 MPV 8.5 Neut % (Auto) 77.8 H Lymph % (Auto) 16.2 L [place] % (Auto) 5.5 Eos % (Auto) 0.2 Baso % (Auto) 0.3 Neut # (Auto) 13.3 H Lymph # (Auto) 2.8 [place] # (Auto) 0.9 H Eos # (Auto) 0.0 Baso # (Auto) 0.0 Neutrophils % (Manual) Band Neutrophils % Lymphocytes % (Manual) Monocytes % (Manual) Eosinophils % (Manual) Platelet Estimate Polychromasia Hypochromasia (manual) Anisocytosis (manual) Microcytosis (manual) PT INR APTT pO2 VBG pH VBG pCO2 VBG HCO3 VBG Total CO2 VBG O2 Sat (Calc) VBG Base Excess VBG Potassium Glucose Lactate FiO2 Crit Value Called To Crit Value Called By Crit Value Read Back Blood Gas Notified Time Sodium 145 Potassium 3.8 Chloride 109 H Carbon Dioxide 24 Anion Gap 16 BUN 27 H Creatinine 0.9 Est GFR ( Amer) > 60 Est GFR (Non-Af Amer) > 60 Random Glucose 179 H Lactic Acid 1.4 Calcium 9.1 Total Bilirubin AST ALT Alkaline Phosphatase Troponin I NT-Pro-B Natriuret Pep Total Protein Albumin Globulin Albumin/Globulin Ratio Lipase Venous Blood Potassium Urine Color Urine Clarity Urine pH Ur Specific [place] Urine Protein Urine Glucose (UA) Urine Ketones Urine Blood Urine Nitrate Urine Bilirubin Urine Urobilinogen Ur Leukocyte Esterase Urine RBC (Auto) Urine Microscopic WBC Ur Squamous Epith Cells Urine Bacteria 06/24/17 08:04 WBC RBC Hgb Hct MCV MCH MCHC RDW Plt Count MPV Neut % (Auto) Lymph % (Auto) [place] % (Auto) Eos % (Auto) Baso % (Auto) Neut # (Auto) Lymph # (Auto) [place] # (Auto) Eos # (Auto) Baso # (Auto) Neutrophils % (Manual) Band Neutrophils % Lymphocytes % (Manual) Monocytes % (Manual) Eosinophils % (Manual) Platelet Estimate Polychromasia Hypochromasia (manual) Anisocytosis (manual) Microcytosis (manual) PT INR APTT pO2 VBG pH VBG pCO2 VBG HCO3 VBG Total CO2 VBG O2 Sat (Calc) VBG Base Excess VBG Potassium Glucose Lactate FiO2 Crit Value Called To Crit Value Called By Crit Value Read Back Blood Gas Notified Time Sodium Potassium Chloride Carbon Dioxide Anion Gap BUN Creatinine Est GFR ( Amer) Est GFR (Non-Af Amer) Random Glucose Lactic Acid Calcium Total Bilirubin AST ALT Alkaline Phosphatase Troponin I 0.0620 NT-Pro-B Natriuret Pep Total Protein Albumin Globulin Albumin/Globulin Ratio Lipase Venous Blood Potassium Urine Color Urine Clarity Urine pH Ur Specific [place] Urine Protein Urine Glucose (UA) Urine Ketones Urine Blood Urine Nitrate Urine Bilirubin Urine Urobilinogen Ur Leukocyte Esterase Urine RBC (Auto) Urine Microscopic WBC Ur Squamous Epith Cells Urine Bacteria EKG/Cardiology Studies: Cardiology / EKG Studies 06/23/17 18:27 ELECTROCARDIOGRAM Stat Comment: Mode Of Transportation: STRETCHER Reason For Exam: ROUTINE 06/23/17 20:06 ELECTROCARDIOGRAM Stat Comment: Mode Of Transportation: STRETCHER Reason For Exam: cp Review of Systems - Review of Systems All systems: reviewed and no additional remarkable complaints except (as above) Critical Care Progress Note - Nutrition Nutrition: Nutrition Category Date Time Status Heart Healthy Diet [DIET] Diets 06/23/17 Breakfast Active
[2017-06-25 05:34] LABS: HEMOGLOBIN 12.4 g/dL (12.0-16.0); MEAN CELL VOLUME 82.1 fl (81.0-99.0); MEAN CORPUSCULAR HGB CONC 31.7 g/dL (33.0-37.0); RBC 4.75 Mil/uL (3.80-5.20); RED CELL DISTRIBUTION WIDTH 16.1 % (11.5-14.5); WHITE BLOOD COUNT 10.9 K/uL (4.8-10.8)
[2017-06-25 08:16] LABS: BLOOD UREA NITROGEN 25 mg/dl (7-17); CALCIUM 8.7 mg/dL (8.4-10.2); GFR AFRICAN-AMERICAN > 60; GFR NON-AFRICAN AMERICAN > 60
--- NOTE | 2017-06-25 09:37 | CP.PCM.PN ---
Subjective - Date & Time of Evaluation Date of Evaluation: 06/25/17 Time of Evaluation: 09:15 - Subjective Subjective: Pt quite comfortable, sitting OOB Denies any chest pain, chills or fever Vital signs stable Leucocytosis resolving Except for one Troponin sample which was elevated, two subsequent samples normal Echo does not show any wall motion abnormalities ACS/ AMI is ruled out No cardiac W/u or intervention recommended Objective - Vital Signs/Intake and Output Vital Signs (last 24 hours): Temp Pulse Resp BP Pulse Ox 97.6 F 73 14 106/64 96 06/25/17 08:00 06/25/17 09:00 06/25/17 08:00 06/25/17 09:00 06/25/17 08:00 Intake and Output: 06/25/17 06/25/17 06:59 18:59 Intake Total 100 300 Balance 100 300 - Medications Medications: Current Medications Aspirin (Aspirin) 325 mg PO DAILY [facility] Last Admin: 06/25/17 09:01 Dose: 325 mg Atorvastatin Calcium (Lipitor) 40 mg PO DAILY [facility] Last Admin: 06/24/17 08:37 Dose: 40 mg Clopidogrel Bisulfate (Plavix) 75 mg PO DAILY [facility] Last Admin: 06/25/17 09:00 Dose: 75 mg Enoxaparin Sodium (Lovenox) 90 mg SC Q12 [facility] PRN Reason: Protocol Last Admin: 06/24/17 20:48 Dose: 90 mg Metoprolol Tartrate (Lopressor) 25 mg PO Q12 [facility] Last Admin: 06/25/17 09:00 Dose: 25 mg Nitroglycerin (Nitrostat Sl Tab) 0.4 mg SL Q5M PRN PRN Reason: Pain, severe (8-10) Last Admin: 06/23/17 19:33 Dose: 0.4 mg Nitroglycerin (Nitrostat Sl Tab) 0.4 mg SL Q5M PRN PRN Reason: chest pain - Labs Labs: 06/25/17 04:45 06/25/17 07:59 PT 11.5 Seconds (9.8-13.1) 06/23/17 21:02 INR 1.0 (0.9-1.2) 06/23/17 21:02 APTT 25.3 Seconds (25.6-37.1) L 06/23/17 21:02
[2017-06-25] MEDS: Enoxaparin 100 mg Syringe SC SCH (10:36)
[2017-06-25 12:28] VITALS: BP 117/60; PULSE 59; RESP 16; TEMP 97.8; O2SAT 96
== END 2017-06-25 14:40 | disposition home or self-care (01) | DRG 140 ==
LOC: H.ER 18:17 → H.ERHOLD 20:09 → H.ICU/CCU 22:57
PROVIDERS: ADMIT Internal Medicine; ATTEND Internal Medicine
DX: I24.9 Acute ischemic heart disease, unspecified (principal); E11.649 Type 2 diabetes mellitus with hypoglycemia without coma; E87.2 Acidosis; E86.0 Dehydration; E11.65 Type 2 diabetes mellitus with hyperglycemia; E66.3 Overweight; Z68.41 Body mass index [BMI] 40.0-44.9, adult; I10 Essential (primary) hypertension; I25.10 Atherosclerotic heart disease of native coronary artery without angina pectoris; E78.5 Hyperlipidemia, unspecified; E78.00 Pure hypercholesterolemia, unspecified; J45.909 Unspecified asthma, uncomplicated; R74.0 Nonspecific elevation of levels of transaminase and lactic acid dehydrogenase [LDH]; Z87.891 Personal history of nicotine dependence; Z88.0 Allergy status to penicillin